=== PATIENT | male | born 1945 | race Caucasian/White ===

== ENCOUNTER 2019-12-16 09:37 | Outpatient (CLI) | payer MEDICARE, OTHER, SELFPAY ==
[2019-12-16 10:28] LABS: Prostate Specific Antigen 9.25 ng/mL (0-4)
== END 2019-12-16 09:38 | disposition home or self-care (01) ==
LOC: LAB 09:41
PROVIDERS: Visit Provider Urology
DX: R97.20 Elevated prostate specific antigen [PSA] (principal)
CPT/HCPCS: 36415; 84153

== ENCOUNTER → 2019-12-18 07:56 | Outpatient (BNVA) | payer MEDICARE, OTHER, SELFPAY | PROVIDERS: Visit Provider Urology | DX: R97.20 Elevated prostate specific antigen [PSA] (principal); N39.9 Disorder of urinary system, unspecified; N52.9 Male erectile dysfunction, unspecified | CPT/HCPCS: 81001 ==

== ENCOUNTER 2020-02-18 08:31 | Outpatient (CLI) | payer MEDICARE, OTHER, SELFPAY ==
--- NOTE | 2020-02-18 09:00 | IR_ITS ---
WS: [id number] Lumbar and thoracic myelogram, 02/18/2020 Clinical Data: Thoracic spinal cord stimulator Comparison: Thoracic myelogram and lumbar myelogram, 07/30/2014. Fluoroscopy time: 1.3 minutes. Findings: With the usual technique, a 22 gauge spinal needle was inserted into the lumbar subarachnoid space at L4-L5. The contrast material was hand injected. Approximately 15 mL of 300 mg/mL Omnipaque entered the lumba r subarachnoid space. No intramedullary, intradural or extradural defects were seen. The patient has had a bilateral posterior fusion of the L4-L5 and S1 levels. There are laminectomies at L4 and L5. The contrast material flowed normally into the thoracic subarachnoid space. There were extradural sti mulators which ended at the superior aspect of the T10 vertebral body. No abnormal intrathoracic abno rmalities could be seen. Flexion, extension and neutral lateral views demonstrated no limitation of motion or subluxation. The posterior fusion remained intact. IR/IR myelogram spine thorac/lumb Impression: 1. Negative lumbar and thoracic myelogram. 2. Intact posterior lumbar fusion. 3. Dorsal column stimulators are in good position.
[2020-02-18] MEDS: iohexol 300 mg/mL 50 mL Btl INTRATHECA (10:20)
--- NOTE | 2020-02-18 11:00 | CT_ITS ---
WS: [id number] CT scan of the thoracic spine. Post myelogram study Additional two-dimensional coronal and sagittal r econstruction was performed. 02/18/2020 Clinical Data: Post laminectomy Comparison: CT thoracic spine, 07/30/2014. DLP: 1129.[address] scans at [facility] use at least one of these dose optimization techniques: automat ed exposure control; mA and/or kV adjustment per patient size (includes targeted exams where dose is matched to clinical indication); or iterative reconstruction. Findings: No compression fractures are seen. There is minimal anterior osteoarthritic spurring of the lower tho racic vertebral bodies. The spinous processes are in good alignment. The proximal ribs are not remark able. The thoracic stimulator ends at the T9 vertebral body. No intramedullary, intradural or extradu ral defects are seen. There is no spinal stenosis or bulging discs. CT/CT thoracic spine w con [id number] Impression: 1. Satisfactory position of dorsal column stimulator. 2. Negative post myelogram CT thoracic spine.
--- NOTE | 2020-02-18 11:30 | CT_ITS ---
WS: [id number] CT of the lumbar spine, post myelogram, additional two-dimensional coronal and sagittal imaging was o btained. 02/18/2020 Clinical Data: Low back pain Comparison: CT lumbar spine post myelogram, 07/30/2014. DLP: 1626.[address] scans at [facility] use at least one of these dose optimization techniques: automat ed exposure control; mA and/or kV adjustment per patient size (includes targeted exams where dose is matched to clinical indication); or iterative reconstruction. Findings: The patient is had a posterior lumbar fusion with bilateral pedicle screws and connecting r ods from L4 through S1. Laminectomies at L4 and L5 have been performed. Degenerative arthritic spurri ng of all lumbar vertebral bodies is present. There is degenerative disc disease at L3-L4. There is d egenerative disc narrowing at L5-S1. These disc narrowings have worsened in the last 5 1/2 years. T12-L1: No canal stenosis, disc bulge or foraminal narrowing is seen. L1-L2: No canal stenosis, disc bulge or foraminal narrowing is seen. L2-L3: There is a small bulging disc but there is facet joint arthritis causing bilateral foraminal n arrowing. L3-L4: There is a bulging disc along with facet joint arthritis causing canal and foraminal stenosis. L4-L5: There is no bulging disc but there is facet joint arthritis causing foraminal narrowing bilate rally. L5-S1: There is no canal stenosis but there is bilateral facet joint arthritis causing foraminal sten osis. CT/CT lumbar spine w con [id number] Impression: 1. Intact posterior lumbar fusion from L4 through S1. 2. Increase in osteoarthritic spurring of the vertebral bodies L2-L5. 3. Degenerative disc narrowing which is worsened at L3-L4 and L5-S1. 4. Multilevel facet joint arthritis causing foraminal narrowing from L3-L4 thro ugh L5-S1.
== END 2020-02-18 08:32 | disposition home or self-care (01) ==
LOC: RADWPI 08:36
PROVIDERS: Family Provider Family Medicine; PCP Family Medicine; Visit Provider Licensed Practical Nurse
DX: M54.5 Low back pain (principal); M46.06 Spinal enthesopathy, lumbar region; M47.9 Spondylosis, unspecified; M96.1 Postlaminectomy syndrome, not elsewhere classified
CPT/HCPCS: 62305; 72120; 72129; 72132; Q9967

== ENCOUNTER → 2020-04-01 10:34 | Outpatient (BNVA) | payer MEDICARE, OTHER, SELFPAY | PROVIDERS: Family Provider Family Medicine; PCP Family Medicine; Referring Provider Specialist; Visit Provider Nurse Practitioner | DX: R29.90 Unspecified symptoms and signs involving the nervous system (principal); R20.2 Paresthesia of skin; Z87.891 Personal history of nicotine dependence | CPT/HCPCS: 99204 ==

== ENCOUNTER → 2020-08-18 11:37 | Outpatient (BNVA) | payer MEDICARE, OTHER, SELFPAY | PROVIDERS: Family Provider Family Medicine; PCP Family Medicine; Visit Provider Urology | DX: R97.20 Elevated prostate specific antigen [PSA] (principal); N39.9 Disorder of urinary system, unspecified | CPT/HCPCS: 84153 ==

== ENCOUNTER → 2020-08-19 16:01 | Outpatient (BNVA) | payer MEDICARE, OTHER, SELFPAY | PROVIDERS: Family Provider Family Medicine; PCP Family Medicine; Visit Provider Urology | DX: R97.20 Elevated prostate specific antigen [PSA] (principal); N20.1 Calculus of ureter; N52.9 Male erectile dysfunction, unspecified; N40.1 Benign prostatic hyperplasia with lower urinary tract symptoms | CPT/HCPCS: 81003 ==

== ENCOUNTER → 2020-09-09 07:52 | Outpatient (BNVA) | payer MEDICARE, OTHER, SELFPAY | PROVIDERS: Family Provider Family Medicine; PCP Family Medicine; Visit Provider Urology | DX: N40.1 Benign prostatic hyperplasia with lower urinary tract symptoms (principal); N52.1 Erectile dysfunction due to diseases classified elsewhere; R97.20 Elevated prostate specific antigen [PSA] | CPT/HCPCS: 81003 ==

== ENCOUNTER 2021-01-05 14:50 | Outpatient (CLI) | payer MEDICARE, OTHER, SELFPAY | END 2021-01-05 14:51 | disposition home or self-care (01) | PROVIDERS: PCP Family Medicine; Visit Provider Urology | DX: R97.20 Elevated prostate specific antigen [PSA] (principal) | CPT/HCPCS: 36415; 84153 ==

== ENCOUNTER → 2021-01-07 07:55 | Outpatient (BNVA) | payer MEDICARE, OTHER, SELFPAY | PROVIDERS: PCP Family Medicine; Visit Provider Urology | DX: N40.1 Benign prostatic hyperplasia with lower urinary tract symptoms (principal); N52.1 Erectile dysfunction due to diseases classified elsewhere; R97.20 Elevated prostate specific antigen [PSA]; F52.32 Male orgasmic disorder | CPT/HCPCS: 81003 ==

== ENCOUNTER 2021-03-03 07:52 | Outpatient (CLI) | payer MEDICARE, OTHER, SELFPAY ==
--- NOTE | 2021-03-03 08:41 | A.OFFVIS_ITS ---
Patient Information Referred by: PAULA Florian Symptom onset date: 02/23/21 COVID 19 common symptoms: positive cough, fatigue and body aches Severity: mild Treatment prior to arrival: none Other details: Patient is a 75-year-old male who presents to ED today for a BAM infusion. Patient tested positive for COVID at [facility] on 02/25/2021. Results were faxed and verified by myself. Risks and benefits of receiving an experimental drug for treatment of COVID were discussed with patient and he verbalizes understanding and wishes to proceed. He is not requiring oxygen. His vital signs are stable. He meets all of criteria for BAM infusion. This will be ordered for patient today. [facility] COVID test results: No Data to Display outside results available, scanned Criteria/Plan Inclusion/Exclusion Criteria weight >/= 40kg, + direct test </= 10 days ago and symptom onset </= 10 days ago age >/= 65 not requiring hospitalization, not requiring oxygen (if not chronically on oxygen) and no increase oxygen requirement (if chronically on oxygen) Patient education patient/family/caregiver received/reviewed fact sheet, Emergency Use Authorization/unapproved drug status discussed with patient/family/caregiver, alternatives to this treatment discussed with patient/family/caregiver, risks and benefits of medication reviewed with patient/family/caregiver, patient/family/caregiver given opportunity for questions, which were answered and patient consents to receiving Monoclonal Antibody Treatment Plan for treatment Meets criteria for Monoclonal Antibody infusion Ordering Monoclonal Antibody infusion for today
[2021-03-03 11:08] VITALS: BP 135/70; PULSE 54; O2SAT 96
[2021-03-03 11:55] VITALS: BP 140/74; PULSE 60; TEMP 36.5; O2SAT 95
--- NOTE | 2021-03-11 14:27 | DCPLANNER ---
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 oil well drilling manager called to check on patient after receiving the infusion. Patient stated that he is feeling better, that before the infusion, he felt really really tired, he just did not feel like doing anything at all. He also stated that he had a little bit of a fever. Patient stated that after the infusion, he is feeling much better, he is not as tired.
== END 2021-03-03 07:53 | disposition home or self-care (01) ==
LOC: ER 07:56
PROVIDERS: PCP Family Medicine; Visit Provider Nurse Practitioner
DX: U07.1 COVID-19 (principal)
CPT/HCPCS: 96365

== ENCOUNTER → 2021-07-12 09:19 | Outpatient (BNVA) | payer MEDICARE, OTHER, SELFPAY | PROVIDERS: PCP Family Medicine; Visit Provider Urology | DX: R97.20 Elevated prostate specific antigen [PSA] (principal) | CPT/HCPCS: 84153 ==

== ENCOUNTER → 2021-07-15 08:11 | Outpatient (BNVA) | payer MEDICARE, OTHER, SELFPAY | PROVIDERS: PCP Family Medicine; Visit Provider Urology | DX: N40.1 Benign prostatic hyperplasia with lower urinary tract symptoms (principal); N52.1 Erectile dysfunction due to diseases classified elsewhere; R97.20 Elevated prostate specific antigen [PSA] | CPT/HCPCS: 81003 ==

== ENCOUNTER 2021-08-05 12:43 | Outpatient (CLI) | payer MEDICARE, OTHER, SELFPAY ==
[2021-08-05 12:50] VITALS: BP 128/62; PULSE 64; RESP 20; TEMP 36.6; O2SAT 97; BMI 25.1
[2021-08-05 13:33] VITALS: BP 120/63; PULSE 59; RESP 18; TEMP 36.7; O2SAT 96
[2021-08-05 14:30] VITALS: BP 124/60; PULSE 57; RESP 18; TEMP 36.5; O2SAT 96
== END 2021-08-05 12:44 | disposition home or self-care (01) ==
LOC: OPS 12:44
PROVIDERS: PCP Family Medicine; Visit Provider Nurse Practitioner Family
DX: U07.1 COVID-19 (principal)
CPT/HCPCS: 96365